=== PATIENT | male | born 1970 | race Caucasian/White ===

== ENCOUNTER 2022-05-25 06:00 | Outpatient (RCR) | payer OTHER, SELFPAY | END 2022-06-24 23:59 | disposition home or self-care (01) | LOC: WPT 06:00 | PROVIDERS: Visit Provider Nurse Practitioner Family | DX: M25.551 Pain in right hip (principal) | CPT/HCPCS: 97110; 97112; 97530 ==

== ENCOUNTER 2022-06-25 06:00 | Outpatient (RCR) | payer OTHER, SELFPAY | END 2022-07-22 23:59 | disposition home or self-care (01) | LOC: WPT 06:00 | PROVIDERS: Visit Provider Nurse Practitioner Family | DX: M25.551 Pain in right hip (principal) | CPT/HCPCS: 97110; 97112 ==

== ENCOUNTER 2024-05-24 06:00 | Outpatient (RCR) | payer OTHER, SELFPAY | END 2024-05-24 23:59 | disposition home or self-care (01) | LOC: WPT 06:00 | PROVIDERS: Visit Provider Nurse Practitioner Family | DX: M54.12 Radiculopathy, cervical region (principal) | CPT/HCPCS: 97161 ==

== ENCOUNTER 2024-05-25 06:00 | Outpatient (RCR) | payer OTHER, SELFPAY | END 2024-06-24 23:59 | disposition home or self-care (01) | LOC: WPT 06:00 | PROVIDERS: Visit Provider Nurse Practitioner Family | DX: M50.10 Cervical disc disorder with radiculopathy, unspecified cervical region (principal) | CPT/HCPCS: 97110; 97530 ==

== ENCOUNTER 2024-06-25 06:30 | Outpatient (RCR) | payer OTHER, SELFPAY | END 2024-07-22 23:59 | disposition home or self-care (01) | LOC: WPT 06:30 | PROVIDERS: Visit Provider Nurse Practitioner Family | DX: M50.10 Cervical disc disorder with radiculopathy, unspecified cervical region (principal) | CPT/HCPCS: 97110; 97140; 97530 ==

== ENCOUNTER 2024-07-23 06:00 | Outpatient (RCR) | payer OTHER, SELFPAY | END 2024-08-22 23:59 | disposition home or self-care (01) | LOC: WPT 06:00 | PROVIDERS: Visit Provider Nurse Practitioner Family | DX: M50.10 Cervical disc disorder with radiculopathy, unspecified cervical region (principal) | CPT/HCPCS: 97110; 97140; 97530 ==

== ENCOUNTER → 2025-01-09 14:14 | Outpatient (BNVA) | payer OTHER, SELFPAY | PROVIDERS: PCP Nurse Practitioner Family; Visit Provider Podiatrist Foot & Ankle Surgery | DX: M79.672 Pain in left foot (principal); M20.11 Hallux valgus (acquired), right foot; M20.12 Hallux valgus (acquired), left foot; E11.42 Type 2 diabetes mellitus with diabetic polyneuropathy; M79.671 Pain in right foot | CPT/HCPCS: 73630; 99204 ==

== ENCOUNTER → 2025-01-26 09:33 | Outpatient (BNVA) | payer OTHER, SELFPAY | PROVIDERS: PCP Nurse Practitioner Family; Visit Provider Podiatrist Foot & Ankle Surgery | DX: M79.672 Pain in left foot (principal); E11.42 Type 2 diabetes mellitus with diabetic polyneuropathy; Z89.422 Acquired absence of other left toe(s); S92.502B Displaced unspecified fracture of left lesser toe(s), initial encounter for open fracture; X58.XXXA Exposure to other specified factors, initial encounter | CPT/HCPCS: 73630; 99214 ==